=== PATIENT | female | born 1960 | race Caucasian/White ===

== ENCOUNTER 2016-06-21 16:35 | Emergency (ER) | payer BC ==
[2016-06-21 16:40] VITALS: TEMP 97.8; BMI 31.2
--- NOTE | 2016-06-21 16:47 | PDOC ---
History of Present Illness - History of Present Illness Initial Comments: The patient is a year old with a past medical hx of chronic sinusitis, hypercholesterolemia, non alcoholic cirrhosis, asthma who presents to the ED complaining of nasal congestion and elevated blood pressure since this morning. The patient states she has had sinusitis for two months and her symptoms have not resolved. She notes she was given Doxycycline in April, and Levaquin in May. She reports she has been taking Tylenol for her symptoms with little relief. She notes she has not seen an ENT in a few years. She reports she took her blood pressure at 1100 this morning and it was elevated, 190/90. She denies a hx of high blood pressure. The patient states she has recently been experiencing blurry vision. She states she saw her Opthamologist in March and has an appointment with her Opthamologist soon for another eye exam. She reports fatigue, nausea, head pressure The patient denies chest pain, SOB The patient denies fever The patient denies vomiting, diarrhea Allergies: Penicillin Social: former smoker (1.5 ppd) quit 11 years ago. Surgical: None reported PCP: Dr. Paul Lovell <Inge Guerrier - Last Filed: 06/21/16 19:52> <Heather Nicolas - Last Filed: 06/21/16 20:32> - General Chief Complaint: Headache Stated Complaint: BP PROBLEM/HEADACHE/LIGHTHEADED Time Seen by Provider: 06/21/16 16:46 Past History <Inge Guerrier - Last Filed: 06/21/16 19:52> - Past Medical History Asthma: Yes Hypercholesterolemia: Yes Liver Disease: Yes (NON ALCOHOLIC CHIRROSIS 2ND TO CHOLESTEROL MED) - Psycho/Social/Smoking Cessation Hx Suicidal Ideation: No Smoking History: Former smoker Have you smoked in the past 12 months: No If you are a former smoker, when did you quit?: 11 YRS Information on smoking cessation initiated: No Hx Alcohol Use: No Drug/Substance Use Hx: No Substance Use Type: None <Heather Nicolas - Last Filed: 06/21/16 20:32> - Past Medical History Allergies/Adverse Reactions: Allergies Allergy/AdvReac Type Severity Reaction Status Date / Time apple Allergy Hives Verified 06/21/16 16:41 Penicillins Allergy Difficulty Verified 06/21/16 16:40 Breathing Home Medications: Ambulatory Orders Cholecalciferol (Vitamin D3) [Vitamin D3 -] 2,000 unit PO DAILY 06/21/16 Cyanocobalamin [Vitamin B12 -] 500 mcg PO DAILY 06/21/16 Folic Acid - 1 mg PO DAILY 06/21/16 Methylprednisolone [Medrol Dose Romeo] 4 mg PO ASDIR #21 tablet 06/21/16 Mometasone/Formoterol [Dulera 100 Mcg/5 Mcg Inhaler] 2 inh IH BID 06/21/16 Ursodiol [Anish -] 1,000 mg PO DAILY 06/21/16 Review of Systems - Review of Systems Able to Perform ROS?: Yes Comments:: 06/21/16 17:30 CONSTITUTIONAL: +Chills, fatigue. Absent: fever, diaphoresis, malaise, loss of appetite HEENT: +blurry vision, nasal congestion. Absent: rhinorrhea, throat pain, throat swelling, difficulty swallowing, mouth swelling, ear pain, eye pain CARDIOVASCULAR: Absent: chest pain, syncope, palpitations, irregular heart rate, lightheadedness , peripheral edema RESPIRATORY: Absent: cough, shortness of breath, dyspnea with exertion, orthopnea, wheezing, stridor, hemoptysis GASTROINTESTINAL: +Nausea. Absent: abdominal pain, abdominal distension, vomiting, diarrhea, constipation, melena, hematochezia GENITOURINARY: Absent: dysuria, frequency, urgency, hesitancy, hematuria, flank pain, genital pain MUSCULOSKELETAL: Absent: myalgia, arthralgia, joint swelling SKIN: Absent: rash, itching, pallor NEUROLOGIC: +Head pressure. Absent: focal weakness or paresthesias, dizziness, unsteady gait , seizure, mental status changes, bladder or bowel incontinence PSYCHIATRIC: Absent: anxiety, depression, suicidal or homicidal ideation, hallucinations. <Inge Guerrier - Last Filed: 06/21/16 19:52> *Physical Exam - Vital Signs Last Vital Signs Temp Pulse Resp BP Pulse Ox 97.8 F 61 16 179/90 100 06/21/16 16:37 06/21/16 17:22 06/21/16 17:22 06/21/16 17:22 06/21/16 17:22 - Physical Exam Comments: 06/21/16 17:31 GENERAL: Well developed, well nourished. Awake and alert. No acute distress. HEENT: Normocephalic, atraumatic. PERRLA, EOMI. No conjunctival pallor. Sclera are non- icteric. Moist mucous membranes. Oropharynx is clear. NECK: Supple. Full ROM. No JVD. Carotid pulses 2+ and symmetric, without bruits. No thyromegaly. No lymphadenopathy. CARDIOVASCULAR: Regular rate and rhythm. No murmurs, rubs, or gallops. Distal pulses are 2+ and symmetric. PULMONARY: No evidence of respiratory distress. Lungs clear to auscultation bilaterally. No wheezing, rales or rhonchi. ABDOMINAL: Soft. Non-tender. Non-distended. No rebound or guarding. No organomegaly. Normoactive bowel sounds. MUSCULOSKELETAL Normal range of motion at all joints. No bony deformities or tenderness. No CVA tenderness. EXTREMITIES: No cyanosis. No clubbing. No edema. No calf tenderness. SKIN: Warm and dry. Normal capillary refill. No rashes. No jaundice. NEUROLOGICAL: Alert, awake, appropriate. Cranial nerves 2-12 intact. No deficits to light touch and temperature in face, upper extremities and lower extremities. No motor deficits in the in face, upper extremities and lower extremities. Normoreflexic in the upper and lower extremities. Normal speech. PSYCHIATRIC: Cooperative. Good eye contact. Appropriate mood and affect. <Inge Guerrier - Last Filed: 06/21/16 19:52> - Vital Signs Last Vital Signs Temp Pulse Resp BP Pulse Ox 97.8 F 90 20 191/95 98 06/21/16 16:37 06/21/16 16:37 06/21/16 16:37 06/21/16 16:37 06/21/16 16:37 <Heather Nicolas - Last Filed: 06/21/16 20:32> Heart Score/ECG Review - ECG Impressions Comment:: 06/21/16 18:44 EKG obtained at 18:14 Sinus bradycardia at a rate of 56 bpm. <Inge Guerrier - Last Filed: 06/21/16 19:52> ED Treatment Course - LABORATORY CBC & Chemistry Diagram: 06/21/16 17:55 06/21/16 17:55 - RADIOLOGY Radiograph Interpretation: 06/21/16 19:52 EXAM: CT brain without intravenous contrast. IMAGES: 70 EXAM DATE AND TIME: 2016-06-21 18:28:04.0 REASON FOR EXAM: AMS. Headache. COMPARISON: None. FINDINGS: 1. There is no intracranial bleed, extra-axial fluid collection no mass effect, midline shift, hydrocephalus or acute territorial infarct demonstrated. 2. Prominent mucoperiosteal thickening right maxillary sinus, opacification of the frontal sinus and almost complete opacification of the ethmoid sinuses. There are also fluid levels of bilateral sphenoid sinuses, left greater than right. Correlate with marked sinus disease/sinusitis . THIS DOCUMENT HAS BEEN ELECTRONICALLY SIGNED Jorge Ramirez M.D 06/21/2016 19:37 EST EXAM: CT sinuses without intravenous contrast. IMAGES: 391 EXAM DATE AND TIME: 2016-06-21 18:30:17.0 REASON FOR EXAM: Frontal headache. Nasal congestion. COMPARISON: None. FINDINGS: 1. Opacification of the frontal sinuses. Almost complete opacification of the ethmoid sinuses. There is marked mucoperiosteal thickening with probable fluid level right maxillary sinus. There is moderate mucoperiosteal thickening left maxillary sinus. There is fluid levels of the left greater than right sphenoid sinuses. There is opacification of bilateral ostiomeatal units. Findings consistent with marked sinus disease/sinusitis with obstruction of the drainage pathways. THIS DOCUMENT HAS BEEN ELECTRONICALLY SIGNED Jorge Ramirez M.D 06/21/2016 19:45 EST <Inge Guerrier - Last Filed: 06/21/16 19:52> - LABORATORY CBC & Chemistry Diagram: 06/21/16 17:55 06/21/16 17:55 <Heather Nicolas - Last Filed: 06/21/16 20:32> Medical Decision Making - Medical Decision Making 06/21/16 18:06 56 yo female p/w elevated BP -she states she had no h/o HTN and takes no meds for HTN -she sates she has elevated cholesterol, problems w sinusitis and has been w/u by Dr Sergei STEPHENSON in the past she had been on 2 rounds of antibiotics for her sinusitis. The last antibiotics were taken at the end of May. -She is afebrile -CBC is within normal limits -Chemistries are unremarkable -UA is negative 06/21/16 20:31 -CAT scan of the head shows no acute intracranial pathology. CAT scan of sinuses shows bilateral opacifications of her sphenoid sinuses, ethmoid and maxillary with fluid levels Impression chronic sinusitis Plan patient to call her ENT, Dr. Mai this week for follow-up She will continue taking her Flonase, and her other nasal spray already prescribed by her ENT <Heather Nicolas - Last Filed: 06/21/16 20:32> *DC/Admit/Observation/Transfer - Attestations Scribe Attestion: 06/21/16 17:30 Documentation prepared by Inge Guerrier, acting as medical office assistant for Heather Nicolas MD/DO. <Inge Guerrier - Last Filed: 06/21/16 19:52> <Heather Nicolas - Last Filed: 06/21/16 20:32> Diagnosis at time of Disposition: Sinusitis, acute Qualifiers: Sinusitis location: maxillary Recurrence: recurrent Qualified Code(s): J01.01 - Acute recurrent maxillary sinusitis - Discharge Dispostion Disposition: HOME Condition at time of disposition: Stable - Prescriptions Prescriptions: Methylprednisolone [Medrol Dose Romeo] 4 mg PO ASDIR #21 tablet - Referrals Referrals: Paul Lovell MD [Primary Care Provider] - Phu Mai MD [Staff Physician] - - Patient Instructions Printed Discharge Instructions: DI for Sinusitis Additional Instructions: please follow up with your ENT doctor this week
[2016-06-21 18:03] LABS: BASOPHIL 0.8 % (0-2.0); EOSINOPHIL 3.8 % (0-4.5); MCH 26.4 pg (25.7-33.7); MCHC 31.8 g/dl (32.0-36.0); MEAN CELL VOLUME 83.2 fl (80-96); PLATELET COUNT 220 K/MM3 (134-434); RDW 13.7 % (11.6-15.6)
[2016-06-21 18:09] LABS: URINE APPEARANCE CLEAR; URINE BILIRUBIN NEGATIVE (NEGATIVE); URINE BLOOD NEGATIVE (NEGATIVE); URINE COLOR LTYELLOW; URINE GLUCOSE (UA) NEGATIVE (NEGATIVE); URINE KETONE NEGATIVE (NEGATIVE); URINE LEUK ESTERASE NEGATIVE (NEGATIVE); URINE NITRITE NEGATIVE (NEGATIVE); URINE PROTEIN NEGATIVE (NEGATIVE); URINE UROBILINOGEN NEGATIVE E.U./dl (0.2-1.0)
[2016-06-21 18:25] LABS: ALBUMIN 3.8 g/dl (3.4-5.0); ANION GAP 9 (8-16); BILIRUBIN,TOTAL 0.3 mg/dL (0.2-1.0); CALCIUM 9.6 mg/dL (8.5-10.1); CO2 31 mmol/L (21-32); CREATININE 0.5 mg/dL (0.55-1.02); GLUCOSE,RANDOM 88 mg/dL (74-106); SGOT/AST 26 U/L (15-37); SGPT/ALT 36 U/L (12-78)
[2016-06-21 18:28] LABS: ALK PHOS 143 U/L (45-117); TROPONIN I < 0.02 ng/ml (0.00-0.05)
[2016-06-21 20:10] VITALS: BP 149/79; PULSE 59
--- NOTE | 2016-06-22 09:23 | EKG ---
Test Reason : Blood Pressure : / mmHG Vent. Rate : 056 BPM Atrial Rate : 056 BPM P-R Int : 136 ms QRS Dur : 082 ms QT Int : 418 ms P-R-T Axes : 042 -11 000 degrees QTc Int : 403 ms SINUS BRADYCARDIA OTHERWISE NORMAL ECG WHEN COMPARED WITH ECG OF 16-DEC-2006 09:51, NO SIGNIFICANT CHANGE WAS FOUND Confirmed by JUAN CARLOS OLIVER MD ([id number]) on 06/22/2016 9:22:38 AM Referred By: Confirmed By:JUAN CARLOS OLIVER MD
== END 2016-06-21 20:37 | disposition home or self-care (01) ==
LOC: JER 16:35
DX: J01.00 Acute maxillary sinusitis, unspecified (principal); J01.20 Acute ethmoidal sinusitis, unspecified; J01.30 Acute sphenoidal sinusitis, unspecified; R03.0 Elevated blood-pressure reading, without diagnosis of hypertension
CPT/HCPCS: 36415; 70450-TC; 70486-TC; 80053; 81003; 82550; 82553; 84484; 85025; 86850; 86900; 86901; 93005; 93010; 99285-25

== ENCOUNTER 2016-09-13 16:31 | Emergency (ER) | payer BC ==
[2016-09-13 16:37] VITALS: BP 155/92; PULSE 97; TEMP 97.7; BMI 29.7
[2016-09-13 16:54] LABS: URINE APPEARANCE CLEAR; URINE BILIRUBIN NEGATIVE (NEGATIVE); URINE BLOOD NEGATIVE (NEGATIVE); URINE COLOR LTYELLOW; URINE GLUCOSE (UA) NEGATIVE (NEGATIVE); URINE KETONE NEGATIVE (NEGATIVE); URINE LEUK ESTERASE NEGATIVE (NEGATIVE); URINE NITRITE NEGATIVE (NEGATIVE); URINE PROTEIN NEGATIVE (NEGATIVE); URINE UROBILINOGEN NEGATIVE E.U./dl (0.2-1.0)
--- NOTE | 2016-09-13 18:44 | PDOC ---
History of Present Illness - General Chief Complaint: Pain Stated Complaint: LOWER ABD PAIN/BACK PAIN/SINUS PRESSURE Time Seen by Provider: 09/13/16 18:24 History Source: Patient Exam Limitations: No Limitations - History of Present Illness Travel History: No Initial Comments: 09/13/16 18:42 56 yr female with c/o lower pelvic pressure low back pain no fever no nvd. Pt admits to increased flatulence. Pt has history of bladder prolapse last year. Pt has urinary frequency . Past History - Past Medical History Allergies/Adverse Reactions: Allergies Allergy/AdvReac Type Severity Reaction Status Date / Time apple Allergy Hives Verified 09/13/16 16:34 Penicillins Allergy Difficulty Verified 09/13/16 16:34 Breathing Home Medications: Ambulatory Orders Cholecalciferol (Vitamin D3) [Vitamin D3 -] 2,000 unit PO DAILY 06/21/16 Cyanocobalamin [Vitamin B12 -] 500 mcg PO DAILY 06/21/16 Folic Acid - 1 mg PO DAILY 06/21/16 Mometasone/Formoterol [Dulera 100 Mcg/5 Mcg Inhaler] 2 inh IH BID 06/21/16 Ursodiol [Anish -] 1,000 mg PO DAILY 06/21/16 Asthma: Yes Hypercholesterolemia: Yes Liver Disease: Yes (NON ALCOHOLIC CHIRROSIS 2ND TO CHOLESTEROL MED) - Family Disease History Comment:: 09/13/16 18:44 none - Psycho/Social/Smoking Cessation Hx Suicidal Ideation: No Smoking History: Former smoker Have you smoked in the past 12 months: No If you are a former smoker, when did you quit?: 11 YRS Information on smoking cessation initiated: No Hx Alcohol Use: No Drug/Substance Use Hx: No Substance Use Type: None Abd/GI Specific PMHX - Complaint Specific PMHX Colitis: No Diverticulitis: No Gall Bladder Disease: No GERD: No Hepatitis: No Irritable Bowel Synd (IBS): No Pancreatitis: No GI Ulcer Disease: No Review of Systems - Review of Systems Able to Perform ROS?: Yes Is the patient limited Niuean proficient: No Constitutional: No: Symptoms Reported HEENTM: No: Symptoms Reported Respiratory: No: Symptoms reported Cardiac (ROS): No: Symptoms Reported ABD/GI: No: Symptoms Reported : Yes: Symptoms Reported, See HPI. No: Testicular Mass Musculoskeletal: No: Symptoms Reported Integumentary: No: Symptoms Reported Neurological: No: Symptoms reported *Physical Exam - Vital Signs Last Vital Signs Temp Pulse Resp BP Pulse Ox 97.7 F 97 H 18 155/92 100 09/13/16 16:34 09/13/16 16:34 09/13/16 16:34 09/13/16 16:34 09/13/16 16:34 - Physical Exam General Appearance: Yes: Nourished, Appropriately Dressed HEENT: positive: EOMI, SARAH, TMs Normal, Pharynx Normal Neck: positive: Supple. negative: Tender Respiratory/Chest: positive: Lungs Clear, Normal Breath Sounds Cardiovascular: positive: Regular Rhythm, Regular Rate Female Pelvic Exam: positive: normal external exam, other (no evidence of bulging or prolapse) Gastrointestinal/Abdominal: positive: Normal Bowel Sounds, Soft Musculoskeletal: positive: Normal Inspection Extremity: positive: Normal Capillary Refill, Normal Inspection, Normal Range of Motion Integumentary: positive: Normal Color, Dry, Warm Neurologic: positive: Fully Oriented, Alert, Normal Mood/Affect, Normal Response , Motor Strength 10/09 ED Treatment Course - ADDITIONAL ORDERS Additional order review: Laboratory Results 09/13/16 16:44 Urine Color Ltyellow Urine Appearance Clear Urine pH 5.0 Ur Specific [place] 1.006 Urine Protein Negative Urine Glucose (UA) Negative Urine Ketones Negative Urine Blood Negative Urine Nitrite Negative Urine Bilirubin Negative Urine Urobilinogen Negative Ur Leukocyte Esterase Negative - RADIOLOGY Radiology Studies Ordered: Category Date Time Status KIDNEY / RENAL US [US] Stat Ultrasound 09/13/16 18:36 Ordered PELVIC / BLADDER US [US] Stat Ultrasound 09/13/16 18:36 Ordered Medical Decision Making - Medical Decision Making 09/13/16 18:46 cc: suprapubic pressure, rectal pressure will get pelvic renal sonogram pt stable no acute distress 09/13/16 21:15 UA is negative US has been sent to imaging seasonal warehouse associate results are not yet available pt has no pain at present would like to go home. I have instructed pt to call her PMD tomorrow to get the results of the scans or to call [facility] to get the results. Pt and her daughter agree with the plan and agree to call tomorrow for results. *DC/Admit/Observation/Transfer Diagnosis at time of Disposition: Pelvic pain - Discharge Dispostion Disposition: HOME Condition at time of disposition: Good - Referrals Referrals: Jacques Lovell MD [Primary Care Provider] - - Patient Instructions Additional Instructions: follow with your doctor this week as planned avoid heavy lifting when you can take motrin for any pain as needed return to ER for any worsening symptoms, vomiting, fever, severe pain or any other concerns
--- NOTE | 2016-09-14 12:25 | PDOC ---
Patient Follow-up (Call Back) - Post ED Follow - Up Condition at time of discharge: Good Disposition at time of original discharge: HOME Reason for Call Back: Radiology (pt. called for bladder/pelvic/renal US results none 09/13/16, no abnormalities of kidneys noted, moderate distention of bladder, thickening of endometrial stipe noted, pt.will follow up with her fur repairer in [address] Jacques Bob, he is associated with this hospital.)
== END 2016-09-13 21:16 | disposition home or self-care (01) ==
LOC: JER 16:31 → JERFT 16:31
DX: R10.2 Pelvic and perineal pain (principal); J45.909 Unspecified asthma, uncomplicated; E78.00 Pure hypercholesterolemia, unspecified; K74.69 Other cirrhosis of liver
CPT/HCPCS: 76775-TC; 76856-TC; 81003; 99281-25

== ENCOUNTER 2024-02-23 04:13 | Day surgery (SDC) | payer OTHER ==
[2024-02-18 13:33] VITALS: BMI 27.7
[2024-02-23] MEDS ORDERED: LIDOCAINE 1%/EPI 1:100000 (20 ML MULTI DOSE VIAL) ONE (07:09)
[2024-02-23] MEDS ORDERED: COCAINE HCL 4% TOPICAL SOLUTION 4 ML BOTTLE TP ONE (07:13)
[2024-02-23] MEDS ORDERED: BACITRACIN ZINC 15 GM TUBE TOPICAL OINTMENT ONE ×2 (07:16→09:21)
[2024-02-23] MEDS ORDERED: CLINDAMYCIN PHOSPHATE 300 MG/2 ML VIAL ONE (07:57)
[2024-02-23] MEDS ORDERED: CLINDAMYCIN PHOSPHATE 600 MG/4 ML VIAL ONE (07:57)
[2024-02-23] MEDS ORDERED: MIDAZOLAM HCL 2 MG/2 ML SINGLE DOSE VIAL ONE (08:03)
[2024-02-23] MEDS ORDERED: ROCURONIUM BROMIDE 50 MG/5 ML SYRINGE ONE (08:03)
[2024-02-23] MEDS ORDERED: PROPOFOL 20 ML ONE (08:03)
[2024-02-23] MEDS: CLINDAMYCIN 900 MG PREMIX BAG IVPB ONE (08:13)
[2024-02-23] MEDS: COCAINE HCL 4% TOPICAL SOLUTION 4 ML BOTTLE TP ONE ×2 (08:23)
[2024-02-23] MEDS ORDERED: DEXAMETHASONE SOD PHOSPHATE 4 MG/1 ML VIAL ONE (08:28)
[2024-02-23] MEDS: LIDOCAINE 1%/EPI 1:100000 (50 ML MULTI DOSE VIAL) INF ONE ×2 (08:43)
[2024-02-23] MEDS ORDERED: ONDANSETRON 4 MG/2 ML VIAL IVPUSH PRN (09:36)
[2024-02-23] MEDS ORDERED: oxyCODONE HCL 5 MG TABLET PO PRN (09:36)
[2024-02-23] MEDS ORDERED: ACETAMINOPHEN INJECTION 100 ML ONE (09:49)
[2024-02-23] MEDS ORDERED: METOCLOPRAMIDE HCL INJECTION 10 MG/2 ML VIAL ONE (09:50)
[2024-02-23] MEDS ORDERED: ONDANSETRON 4 MG/2 ML VIAL ONE (10:04)
[2024-02-23] MEDS ORDERED: SUGAMMADEX SODIUM 200 MG/2 ML VIAL ONE (10:04)
[2024-02-23] MEDS: LACTATED RINGERS SOLUTION 1,000 ML IV SCH (12:05)
[2024-02-23 12:49] VITALS: RESP 16; TEMP 97.8
[2024-02-23 14:46] VITALS: BP 105/56; PULSE 71
== END 2024-02-23 15:22 | disposition home or self-care (01) ==
LOC: JASU-SURG 04:13
PROVIDERS: ATTEND Otolaryngology
PROC: 09TU8ZZ Resection of Right Ethmoid Sinus, Via Natural or Artificial Opening Endoscopic (ICD-10-PCS; 2024-02-23)
PROC: 09CX8ZZ Extirpation of Matter from Left Sphenoid Sinus, Via Natural or Artificial Opening Endoscopic (ICD-10-PCS; 2024-02-23)
PROC: 09CW8ZZ Extirpation of Matter from Right Sphenoid Sinus, Via Natural or Artificial Opening Endoscopic (ICD-10-PCS; 2024-02-23)
PROC: 095L8ZZ Destruction of Nasal Turbinate, Via Natural or Artificial Opening Endoscopic (ICD-10-PCS; 2024-02-23)
PROC: 09TV8ZZ Resection of Left Ethmoid Sinus, Via Natural or Artificial Opening Endoscopic (ICD-10-PCS; principal; 2024-02-23 08:00)
DX: J32.4 Chronic pansinusitis (principal); J33.8 Other polyp of sinus; R43.0 Anosmia
CPT/HCPCS: 86850; 86900; 86901; 88304-TC; 94760; J0131